=== PATIENT | female | born 1970 | race Caucasian/White ===

== ENCOUNTER → 2017-02-11 | Outpatient (REF) ==
[~2017-02-11] MED LIST: IBUPROFEN 200200 MG PO; INSULIN R (N100 U/ML IJ; LEVEMIR SQ; NO HOME MEDICATIONS; PERCOCET 650 MG1 TAB PO; STOOL SOFTENER100 MG PO
== END ==
LOC: ZLAB.WCH 18:08
DX: Z01.89 Encounter for other specified special examinations (principal)

== ENCOUNTER → 2017-07-23 | Outpatient (REF) | LOC: ZLAB.WCH 18:04 | DX: Z01.89 Encounter for other specified special examinations (principal) ==

== ENCOUNTER → 2017-11-15 | Outpatient (REF) | LOC: ZLAB.WCH 10:30 | DX: Z01.89 Encounter for other specified special examinations (principal) ==

== ENCOUNTER → 2018-02-24 | Outpatient (REF) | LOC: ZLAB.WCH 17:37 | DX: Z01.89 Encounter for other specified special examinations (principal) ==

== ENCOUNTER → 2018-07-02 | Outpatient (REF) | LOC: ZLAB.WCH 18:31 | DX: Z01.89 Encounter for other specified special examinations (principal) ==